=== PATIENT | female | born 1975 | race African-American/Black ===

== ENCOUNTER 2017-01-07 22:18 | Emergency (ER) | payer OTHER ==
--- NOTE | 2017-01-07 22:36 | PDOC ---
History of Present Illness - General Chief Complaint: Revisit, Lab Variance Stated Complaint: RH NEGATIVE Time Seen by Provider: 01/07/17 22:28 History Source: Patient Exam Limitations: No Limitations - History of Present Illness Initial Comments: 01/07/17 23:14 41-year-old female presents to the emergency department complaining of possible Rh-. Patient states this is her fourth . She was informed by her edger hand come to the hospital for Rhogam. Patient denies any chest pain, shortness of breath, abdominal pains, vaginal discharge. Patient states she has no complaints. Patient just wants to confirm her Rh status and if negative, she will need her Rhogam. 01/08/17 02:21 Patient was sent to the emergency department from labor and delivery. Patient will be sent back to labor and delivery to administer program since the type and screen shows B- Timing/Duration: unsure Past History - Travel Traveled outside of the country in the last 30 days: No Close contact w/someone who was outside of country & ill: No - Past Medical History Allergies/Adverse Reactions: Allergies Allergy/AdvReac Type Severity Reaction Status Date / Time No Known Allergies Allergy Verified 01/07/17 22:27 Home Medications: Ambulatory Orders NK [No Known Home Medication] 01/07/17 - Psycho/Social/Smoking Cessation Hx Suicidal Ideation: No Smoking History: Never smoked Have you smoked in the past 12 months: No Information on smoking cessation initiated: No Hx Alcohol Use: No Drug/Substance Use Hx: No Review of Systems - Review of Systems Able to Perform ROS?: Yes Comments:: 01/07/17 23:14 CONSTITUTIONAL: Absent: fever, chills, diaphoresis, generalized weakness, malaise, loss of appetite HEENT: Absent: rhinorrhea, nasal congestion, throat pain, throat swelling, difficulty swallowing, mouth swelling, ear pain, eye pain, visual Changes CARDIOVASCULAR: Absent: chest pain, loss of consciousness, palpitations, irregular heart rate, peripheral edema RESPIRATORY: Absent: cough, shortness of breath, dyspnea with exertion, orthopnea, wheezing, stridor, hemoptysis GASTROINTESTINAL: Absent: abdominal pain, abdominal distension, nausea, vomiting, diarrhea, constipation, melena, hematochezia GENITOURINARY: Absent: dysuria, frequency, urgency, hesitancy, hematuria, flank pain, genital pain MUSCULOSKELETAL: Absent: myalgia, arthralgia, joint swelling SKIN: Absent: rash, itching, pallor HEMATOLOGIC/IMMUNOLOGIC: Absent: easy bleeding, easy bruising, lymphadenopathy, frequent infections ENDOCRINE: Absent: unexplained weight gain, unexplained weight loss, heat intolerance, cold intolerance NEUROLOGIC: Absent: headache, focal weakness or paresthesias, dizziness, unsteady gait, seizure, mental status changes, bladder or bowel incontinence PSYCHIATRIC: Absent: anxiety, depression, suicidal or homicidal ideation, hallucinations. Is the patient limited Turkmen proficient: No *Physical Exam - Vital Signs Last Vital Signs Temp Pulse Resp BP Pulse Ox 98.6 F 89 18 118/62 99 01/07/17 22:27 01/07/17 22:27 01/07/17 22:27 01/07/17 22:27 01/07/17 22:27 - Physical Exam Comments: 01/07/17 23:14 GENERAL: Well developed, well nourished. Awake and alert. No acute distress. HEENT: Normocephalic, atraumatic. PERRLA, EOMI. No conjunctival pallor. Sclera are non- icteric. Moist mucous membranes. Oropharynx is clear. NECK: Supple. Full ROM. No JVD. Carotid pulses 2+ and symmetric, without bruits. No thyromegaly. No lymphadenopathy. CARDIOVASCULAR: Regular rate and rhythm. No murmurs, rubs, or gallops. Distal pulses are 2+ and symmetric. PULMONARY: No evidence of respiratory distress. Lungs clear to auscultation bilaterally. No wheezing, rales or rhonchi. ABDOMINAL: Soft. Non-tender. Non-distended. No rebound or guarding. No organomegaly. Normoactive bowel sounds. MUSCULOSKELETAL Normal range of motion at all joints. No bony deformities or tenderness. No CVA tenderness. EXTREMITIES: No cyanosis. No clubbing. No edema. No calf tenderness. SKIN: Warm and dry. Normal capillary refill. No rashes. No jaundice. NEUROLOGICAL: Alert, awake, appropriate. Cranial nerves 2-12 intact. No deficits to light touch and temperature in face, upper extremities and lower extremities. No motor deficits in the in face, upper extremities and lower extremities. Normoreflexic in the upper and lower extremities. Normal speech. Toes are down- going bilaterally. Gait is normal without ataxia. PSYCHIATRIC: Cooperative. Good eye contact. Appropriate mood and affect. *DC/Admit/Observation/Transfer Diagnosis at time of Disposition: Rh negative state in antepartum period Qualifiers: Trimester: second trimester Qualified Code(s): O09.892 - Supervision of other high risk pregnancies, second trimester - Discharge Dispostion Disposition: HOME Condition at time of disposition: Stable Admit: No - Referrals Referrals: Huber Vargas [Primary Care Provider] - Daniele Black MD [Staff Physician] - - Patient Instructions Additional Instructions: Follow-up with your manager scientific Return back to the emergency department for any concerns Progress Note - Progress Note Progress Note: 2320hrs: Spoke to Beverly RN/ L&D RN Pt will need 2 tubes of Type and Screen to confirm RH. If neg, send pt to L&D with Rhogam.
[2017-01-07 22:40] VITALS: BP 118/62; PULSE 89; TEMP 98.6; BMI 33.3
[2017-01-08] MEDS ORDERED: RHO(D) IMMUNE GLOBULIN 1,500 UNIT DISP.SYRIN IM ONE (01:54)
== END 2017-01-08 02:31 | disposition home or self-care (01) ==
LOC: JER 22:18
PROC: 3E023GC Introduction of Other Therapeutic Substance into Muscle, Percutaneous Approach (ICD-10-PCS; principal; 2017-01-07)
DX: O09.892 Supervision of other high risk pregnancies, second trimester (principal)
CPT/HCPCS: 86850; 86900; 86901; 86999; 99281-25; J1561

== ENCOUNTER 2017-02-14 14:00 | Inpatient (IN) | payer OTHER ==
[2017-03-16] MEDS ORDERED: CITRIC ACID/SODIUM CITRATE 30 ML UNIT-DOSE CUP PO ONE (07:39)
[2017-03-16] MEDS ORDERED: HEPARIN NA (PORCINE) 5,000 UNITS/ML 1ML VIAL SQ ONE (07:39)
--- NOTE | 2017-03-16 07:41 | HP ---
Past Medical History - Primary Care Physician PCP:: Mary Kay Henriquez - Admission Chief Complaint: Cardiac palpitations. Grade 3 Placenta History of Present Illness: 42 yo G P EDC 03/28/17 EGA 38 weeks admitted with cardiac problems affectting and Grade 3 placenta for repeat CS. MFM agrees with plan for delivery at 38 weeks History Source: Patient - Past Medical History ...Para: 3 - Past Surgical History Past Surgical History: Yes: Hx Myomectomy: No Hx Transabdominal Cerclage: No - Smoking History Smoking history: Never smoked Have you smoked in the past 12 months: No - Alcohol/Substance Use Hx Alcohol Use: No History of Substance Use: reports: None - Social History Usual Living Arrangement: Yes: With Spouse History of Recent Travel: No Home Medications - Allergies Allergies/Adverse Reactions: Allergies Allergy/AdvReac Type Severity Reaction Status Date / Time No Known Drug Allergies Allergy Verified 03/16/17 06:45 shellfish derived Allergy Hives Verified 03/16/17 06:45 - Home Medications Home Medications: Ambulatory Orders Vit/Iron Fumarate/FA [ Tablet] 1 tab PO DAILY 01/16/17 Review of Systems - Review of Systems Constitutional: reports: No Symptoms Eyes: reports: No Symptoms HENT: reports: No Symptoms Neck: reports: No Symptoms Cardiovascular: reports: Palpitations Respiratory: reports: No Symptoms Gastrointestinal: reports: No Symptoms Genitourinary: reports: No Symptoms Breasts: reports: No Symptoms Reported Musculoskeletal: reports: No Symptoms Integumentary: reports: No Symptoms Neurological: reports: No Symptoms Endocrine: reports: No Symptoms Hematology/Lymphatic: reports: No Symptoms Psychiatric: reports: No Symptoms Physical Exam - Maternity Constitutional: Yes: Well Nourished, No Distress Neck: Yes: WNL Cardiovascular: Yes: WNL, Regular Rate and Rhythm Lungs: Clear to auscultation Breast(s): Yes: WNL - Abdominal Exam/OB Fundal Height: 39 Number of Fetuses: Single Presentation: Vertex Contractions: No Monitor Mode: External Category: I Accelerations: Non-Uniform Decelerations: None - Vaginal Exam/OB Speculum Exam: No Dilatation (cm): closed Amniotic Membrane Status: Intact Presentation: Vertex/Position Station: -1 - Physical Exam Edema: No Integumentary: Yes: WNL Hemorrhage Risk Assessment - Risk Factors Medium Risk Factors: Yes: Prior , uterine surgery,or multiple laparotomies Risk Score: 1 Risk Level: Medium Risk Problem List - Problems (1) Cardiac condition affecting in third trimester, antepartum Code(s): O99.413 - DISEASES OF THE CIRC SYS COMP , THIRD TRIMESTER I51.9 - HEART DISEASE, UNSPECIFIED (2) Previous delivery affecting , antepartum Code(s): O34.219 - MATERNAL CARE FOR UNSP TYPE SCAR FROM PREVIOUS DEL Assessment/Plan Cardiac problems affecting Grade 3 placenta IUP at 38.4 weeks Plan REpeat CS Bilateral salpingectomy
[2017-03-16] MEDS ORDERED: ELECTROLYTE-148 SOLN 1,000 ML IV SCH (07:45)
[2017-03-16] MEDS ORDERED: BENZOCAINE 20% 57 GM BOTTLE TP PRN (07:46)
[2017-03-16] MEDS ORDERED: METHYLERGONOVINE MALEATE 0.2 MG/1 ML AMP IM PRN (07:46)
[2017-03-16] MEDS ORDERED: BENZOCAINE 28 GM HEMORRHOIDAL OINTMENT TP PRN (07:46)
[2017-03-16] MEDS ORDERED: TUBERCULIN PPD 5 TU/0.1ML SYRINGE (IN PATIENT USE ONLY) ID ONE (08:00)
[2017-03-16 08:05] VITALS: BMI 35.9
--- NOTE | 2017-03-16 08:21 | OP ---
Operative Note - Note: Operative Date: 03/16/17 Pre-Operative Diagnosis: Cardiac problems affecting . Grade 3 placenta. IUP at 38 weeks. Previous section Operation: repeat section. bilateral salpingectomy. Lysis of numerous dense adhesions Findings: Live male Nuchal x 2 Numerous scar tissue uterus was attached to anterior abdominal wall numerous adhesions seen in adnexal area Post-Operative Diagnosis: Same as Pre-op Surgeon: Mary Kay Henriquez Case Management Specialist: Delia Blackwell Anesthesia: Spinal Estimated Blood Loss (mls): 1,200 Operative Report Dictated: Yes
[2017-03-16] MEDS ORDERED: morphine SULFATE/Preservative Free 0.5 MG/ML (1cc Syringe) SPIN ONE (08:30)
[2017-03-16 09:04] LABS: ARTERIAL BLOOD GAS BASE EXCESS 0.7 meq/l (-2-2); ARTERIAL BLOOD GAS HCO3 27.3 meq/L (22-26); ARTERIAL BLOOD GAS PO2 24.1 mmHg (80-100); ARTERIAL BLOOD GAS pH 7.32 (7.35-7.45)
[2017-03-16 09:27] LABS: PT. ON O2? no
[2017-03-16 09:29] LABS: VENOUS PH 7.32 (7.32-7.42)
[2017-03-16] MEDS ORDERED: ONDANSETRON 4 MG/2 ML VIAL IVPB PRN (10:37)
[2017-03-16] MEDS: D5W-LR W/ 20 UNITS OXYTOCIN 1,000 ML IV SCH ×2 (10:51→21:08)
[2017-03-16] MEDS: IBUPROFEN 800 MG/8 ML IJ IVPB PRN (15:12)
--- NOTE | 2017-03-16 16:29 | PN ---
Progress Note (short form) - Note Progress Note: Called to see pt due to 400 cc of blood passed no bleeding presently advised will transfuse 3 units of blood prbc maintain methergine and pitocin fundus firm advised was difficult surgery and will have some blood loss stat cbc vss afebrile order tylenol Problem List - Problems (1) Cardiac condition affecting in third trimester, antepartum Code(s): O99.413 - DISEASES OF THE CIRC SYS COMP , THIRD TRIMESTER I51.9 - HEART DISEASE, UNSPECIFIED (2) Previous delivery affecting , antepartum Code(s): O34.219 - MATERNAL CARE FOR UNSP TYPE SCAR FROM PREVIOUS DEL
--- NOTE | 2017-03-16 20:14 | OP ---
DATE OF OPERATION: 03/16/2017 PREOPERATIVE DIAGNOSIS: Cardiac problems, antepartum intrauterine at 38 weeks and previous section x3. OPERATION: Repeat section and bilateral salpingectomy and lysis of numerous adhesions. FINDINGS: Uterus attached to the anterior abdominal wall, numerous scar tissue in uterus and adnexal region. Muscle also attached to the anterior abdominal wall. DESCRIPTION OF PROCEDURE: Patient was taken to the operating room, placed in supine position. Prepped and draped in usual sterile fashion. Timeout was performed in accordance with hospital regulation. Pfannenstiel skin incision was made with a scalpel. Cautery was then used to go through layers of abdominal wall towards the fascia. Fascia was cut in the midline, and cautery was then used to open the fascia in smiling fashion. Lilo was then used to bluntly and sharply dissect the rectus muscle off the fascia. The muscle split in the midline. Peritoneal cavity was then entered and carried upward and downward. The uterus was severely attached to the anterior abdominal wall. Adhesions had to be lysed prior to putting in the bladder blade. Scalpel was then used to make a low uterine segment. Incision was carried upward using bandage scissors. A live male infant was delivered in OP position. Nuchal cord x2 was reduced. The shoulders were delivered without difficulty. The cord was clamped and cut. Cord blood obtained. The placenta was manually extracted from the uterus. The uterus was unable to be exteriorized in the beginning due to numerous adhesions. Lysis of dense adhesions of the uterus to the anterior abdominal wall were done. Ovaries were noted to be normal. After much lysis of adhesions, Ligasure was then used to cut the rectus muscle away from the uterus and peritoneum away from the uterus. Uterus was then able to be exteriorized, and uterine incision was then closed using 0 Biosyn suture, first layer continuous interlocking, second layer imbricating the first layer. Mostly anterior abdominal wall was oozing, Ligasure was then used to burn and coagulate the uterus. Tubes were identified, and Ligasure was then used to clamp and coil the fallopian tube away from the uterus and submitted to pathology. Bilateral salpingectomies were performed using Ligasure. Hemostasis was achieved using [id number] sutures and coagulation using Ligasure device. Uterus was then interiorized, again ovaries were noted to be normal. Peritoneum was then closed in transverse fashion due to lysis of adhesions. Intercede was placed over the uterine scar. Muscle was approximated with circumferential stitch after peritoneum was then closed. Fascia was closed in 2 parts, continuous, skin was then closed using 3-0 Vicryl in subcuticular fashion. Wound was washed and dressed. Patient tolerated the procedure well. Was taken to recovery in stable condition. KALA CALDERÓN M.D. WERNER/[id number]
[2017-03-16 21:44] LABS: BASOPHIL 0.1 % (0-2.0); EOSINOPHIL 0.1 % (0-4.5); MCH 31.3 pg (25.7-33.7); MCHC 32.8 g/dl (32.0-36.0); MEAN CELL VOLUME 95.6 fl (80-96); MEAN PLT VOLUME 8.2 fl (7.5-11.1); NEUTROPHILS 83.6 % (42.8-82.8); PLATELET COUNT 172 K/MM3 (134-434); RDW 14.3 % (11.6-15.6); WHITE BLOOD COUNT 12.1 K/mm3 (4.0-10.0)
[2017-03-17] MEDS: SIMETHICONE 80 MG TAB.CHEW (FP) PO PRN ×5 (00:41→21:09)
[2017-03-17] MEDS: IBUPROFEN 800 MG/8 ML IJ IVPB PRN (02:22)
[2017-03-17] MEDS: oxyCODONE HCL 5 MG TABLET PO PRN ×4 (07:05→21:10)
[2017-03-17] MEDS: IBUPROFEN 600 MG TABLET (FP) PO PRN ×3 (07:05→15:33)
[2017-03-17 08:09] LABS: BASOPHIL 0.2 % (0-2.0); EOSINOPHIL 0.5 % (0-4.5); MCH 31.9 pg (25.7-33.7); MCHC 33.1 g/dl (32.0-36.0); MEAN CELL VOLUME 96.2 fl (80-96); MEAN PLT VOLUME 8.5 fl (7.5-11.1); NEUTROPHILS 73.5 % (42.8-82.8); PLATELET COUNT 159 K/MM3 (134-434); RDW 14.6 % (11.6-15.6); WHITE BLOOD COUNT 11.1 K/mm3 (4.0-10.0)
[2017-03-17] MEDS: ENOXAPARIN NA (PORCINE) 40 MG/0.4 ML DISP.SYRIN SQ SCH (09:21)
--- NOTE | 2017-03-17 09:29 | PN ---
Progress Note (short form) - Note Progress Note: Anesthesia Post op/ pain Pt seen and examined S:Alert and awake Comfortable ): Vital Signs Temperature 98.9 F 03/17/17 08:32 Pulse Rate 84 03/17/17 08:32 Respiratory Rate 20 03/17/17 08:32 Blood Pressure 98/60 03/17/17 08:32 O2 Sat by Pulse Oximetry (%) CBC, BMP 03/17/17 06:00 A/P:Current Active Problems Cardiac condition affecting in third trimester, antepartum (Acute) Previous delivery affecting , antepartum (Acute) s/p c section Doing well post op Continue current care Quentin Son MD
--- NOTE | 2017-03-17 09:36 | PN ---
Post Progress Note - Subjective Subjective: 42 yo Para 4, status post , seen and evaluated. She's out of bed to chair. Post Day: 1 Type of Delivery: Repeat C/S Vital Signs: Vital Signs Temperature 98.9 F 03/17/17 08:32 Pulse Rate 84 03/17/17 08:32 Respiratory Rate 20 03/17/17 08:32 Blood Pressure 98/60 03/17/17 08:32 O2 Sat by Pulse Oximetry (%) Breast Exam: Yes: Soft Uterus: Yes: Fundus Firm Incision: Yes: Dressing dry and intact Abdomen/GI: Yes: Abdomen soft Lochia: Yes: Rubra Lochia, amount: Small Extremities: Yes: Calves non-tender Perineum: Yes: Intact - Labs Labs: CBC WBC 11.1 K/mm3 (4.0-10.0) H 03/17/17 06:00 RBC 3.09 M/mm3 (3.60-5.2) L 03/17/17 06:00 Hgb 9.8 GM/dL (10.7-15.3) L 03/17/17 06:00 Hct 29.7 % (32.4-45.2) L 03/17/17 06:00 MCV 96.2 fl (80-96) H 03/17/17 06:00 MCHC 33.1 g/dl (32.0-36.0) 03/17/17 06:00 RDW 14.6 % (11.6-15.6) 03/17/17 06:00 Plt Count 159 K/MM3 (134-434) 03/17/17 06:00 MPV 8.5 fl (7.5-11.1) 03/17/17 06:00 Neutrophils % 73.5 % (42.8-82.8) 03/17/17 06:00 Lymphocytes % 17.2 % (8-40) D 03/17/17 06:00 Monocytes % 8.6 % (3.8-10.2) 03/17/17 06:00 Eosinophils % 0.5 % (0-4.5) D 03/17/17 06:00 Basophils % 0.2 % (0-2.0) 03/17/17 06:00 Problem List - Problems (1) Status post repeat low transverse section Code(s): Z98.891 - HISTORY OF UTERINE SCAR FROM PREVIOUS SURGERY Assessment/Plan Status post repeat Stable Ambulation Analgesia as needed Continue routine Post op care
[2017-03-17] MEDS ORDERED: ENOXAPARIN NA (PORCINE) 40 MG/0.4 ML DISP.SYRIN SQ SCH (10:00)
[2017-03-17] MEDS: BISACODYL 10 MG SUPP.RECT RC PRN ×2 (10:44→21:17)
[2017-03-17] MEDS: ACETAMINOPHEN 325 MG TABLET (FP) PO PRN ×3 (10:48→21:09)
[2017-03-17] MEDS: PRENATAL VITAMINS W/ FOLIC ACID TABLET (FP) PO SCH (10:53)
[2017-03-17] MEDS: D5W-LR W/ 20 UNITS OXYTOCIN 1,000 ML IV SCH (12:25)
[2017-03-17 18:06] LABS: MCHC 33.5 g/dl (32.0-36.0); MEAN CELL VOLUME 95.8 fl (80-96); MEAN PLT VOLUME 8.6 fl (7.5-11.1); PLATELET COUNT 173 K/MM3 (134-434); RDW 14.4 % (11.6-15.6); WHITE BLOOD COUNT 9.5 K/mm3 (4.0-10.0)
[2017-03-18] MEDS: ACETAMINOPHEN 325 MG TABLET (FP) PO PRN ×4 (01:23→20:05)
[2017-03-18] MEDS: IBUPROFEN 600 MG TABLET (FP) PO PRN ×4 (01:24→20:05)
[2017-03-18] MEDS: SIMETHICONE 80 MG TAB.CHEW (FP) PO PRN ×3 (08:04→20:04)
[2017-03-18] MEDS: oxyCODONE HCL 5 MG TABLET PO PRN ×3 (08:05→20:04)
[2017-03-18 09:06] VITALS: PULSE 86
[2017-03-18] MEDS: ENOXAPARIN NA (PORCINE) 40 MG/0.4 ML DISP.SYRIN SQ SCH (09:55)
[2017-03-18] MEDS: PRENATAL VITAMINS W/ FOLIC ACID TABLET (FP) PO SCH (09:55)
--- NOTE | 2017-03-18 13:17 | PN ---
Post Progress Note - Subjective Subjective: Pt seen and evaluated, doing well. Pain controlled, tolerating diet. Ambulating, voiding, passing flatus. Tolerating diet. Denies CP/SOB/F/C/HARRIS. VB minimal. Type of Delivery: Repeat C/S Vital Signs: Vital Signs Temperature 97.8 F 03/18/17 09:04 Pulse Rate 86 03/18/17 09:04 Respiratory Rate 20 03/18/17 09:04 Blood Pressure 118/63 03/18/17 09:04 O2 Sat by Pulse Oximetry (%) Uterus: Yes: Fundus Firm, Fundus below umbilicus Incision: Yes: Dressing dry and intact Abdomen/GI: Yes: Abdomen soft, Passing flatus, Tolerating PO. No: Abdominal Distention, Tender Lochia: Yes: Rubra Lochia, amount: Small Extremities: No: Edema Perineum: Yes: Intact Activity: Ambulating - Labs Labs: CBC WBC 9.5 K/mm3 (4.0-10.0) 03/17/17 17:00 RBC 2.75 M/mm3 (3.60-5.2) L 03/17/17 17:00 Hgb 8.8 GM/dL (10.7-15.3) L D 03/17/17 17:00 Hct 26.4 % (32.4-45.2) L 03/17/17 17:00 MCV 95.8 fl (80-96) 03/17/17 17:00 MCHC 33.5 g/dl (32.0-36.0) 03/17/17 17:00 RDW 14.4 % (11.6-15.6) 03/17/17 17:00 Plt Count 173 K/MM3 (134-434) 03/17/17 17:00 MPV 8.6 fl (7.5-11.1) 03/17/17 17:00 Neutrophils % 73.5 % (42.8-82.8) 03/17/17 06:00 Lymphocytes % 17.2 % (8-40) D 03/17/17 06:00 Monocytes % 8.6 % (3.8-10.2) 03/17/17 06:00 Eosinophils % 0.5 % (0-4.5) D 03/17/17 06:00 Basophils % 0.2 % (0-2.0) 03/17/17 06:00 Problem List - Problems (1) Status post repeat low transverse section Code(s): Z98.891 - HISTORY OF UTERINE SCAR FROM PREVIOUS SURGERY (2) Cardiac condition affecting in third trimester, antepartum Code(s): O99.413 - DISEASES OF THE CIRC SYS COMP , THIRD TRIMESTER I51.9 - HEART DISEASE, UNSPECIFIED (3) Anemia Code(s): D64.9 - ANEMIA, UNSPECIFIED Assessment/Plan 42 y/o POD#2 s/p repeat c section - AFVSS - anemia, s/p 1 unit PRBC, Hgb stable, VSS. To monitor, continue vitamins. - Encourage ambulation, regular diet PO pain meds - routine care, for discharge home in a.m. if stable
[2017-03-19] MEDS: ACETAMINOPHEN 325 MG TABLET (FP) PO PRN ×2 (07:26→11:48)
[2017-03-19] MEDS: SIMETHICONE 80 MG TAB.CHEW (FP) PO PRN ×2 (07:27→11:48)
[2017-03-19] MEDS: oxyCODONE HCL 5 MG TABLET PO PRN ×2 (07:27→11:49)
--- NOTE | 2017-03-19 07:55 | DS ---
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 Vital Signs: Vital Signs Temperature 97.8 F 03/18/17 20:08 Pulse Rate 86 03/18/17 20:08 Respiratory Rate 20 03/18/17 20:08 Blood Pressure 120/71 03/18/17 20:08 O2 Sat by Pulse Oximetry (%) Constitutional: Yes: Well Nourished Eyes: Yes: Conjunctiva Clear HENT: Yes: Atraumatic Neck: Yes: Supple, Trachea Midline Cardiovascular: Yes: Regular Rate and Rhythm Respiratory: Yes: Regular, CTA Bilaterally Gastrointestinal: Yes: Normal Bowel Sounds ...Rectal Exam: Yes: WNL External Genitalia: Yes: Normal Vaginal Exam: Yes: Normal Cervix: Yes: Normal Uterus: Yes: Firm Wound/Incision: Yes: Clean/Dry, Well Approximated, Steri Strips (in place) Neurological: Yes: Alert, Oriented ...Motor Strength: WNL Psychiatric: Yes: Alert, Oriented Labs: CBC, BMP 03/17/17 17:00 Delivery - Delivery Type of Anesthesia: Spinal Episiotomy/Laceration: None EBL (cc): 1,000 Delivery, Single - Stages of Labor Date of Delivery: 03/16/17 Time of Delivery: 08:48 Time Placenta Delivered: 08:50 - Condition of Infant Planning Specialist/First Line Production Supervisor Present: Yes Name: Dafne Matias Infant Gender: Male Weight: 8 lb 13 oz Position: Right, OT Total Hours ROM (Hrs/Mins): 1min - 1 Minute Total Score: 9 5 Minutes Total Score: 9 - Feeding Plan Initial Plan: Elected not to breastfeed exclusively throughout hospitalization Discharge Summary Reason For Visit: SCHEDULED C/SECTION Current Active Problems Anemia (Acute) Cardiac condition affecting in third trimester, antepartum (Acute) Previous delivery affecting , antepartum (Acute) Status post repeat low transverse section (Acute) Procedures: Principal: Repeat Hospital Course: Routine Post op care Condition: Good - Instructions Diet, Activity, Other Instructions: Physical activity Resume your normal everyday activity as tolerated no heavy lifting or exercise until seen by your surgeon. You may walk unlimited [place] of and climb stairs. You may resume driving the car when you feel safe and comfortable behind the wheel. No sexual activity as instructed. Wound care If you have a bandage, leave it on, and keep dry for 48-72 hours. After that time discard the outer bandage. If they are tapes on the skin under the out of bandage leave them in place. They will peel off in the next 7 to 10 days. Do Not Peel them off. You may shower the day after surgery. If there are tapes present on the skin, you may shower over them. Diet There are no dietary restrictions. Eat healthy, high-fiber foods. Drink 6 to 8 glasses of liquid each day. This will assist in keeping your bowels are regular. Pain management You may take Tylenol or acetaminophen or Ibuprofen (for example, Motrin, Advil etc.) from my pain prescription medication is ordered should be taken as prescribed for moderate to severe pain. Call MD for any of the following: Severe pain not relieved by medication Fever of 101 or higher Excessive bleeding or drainage on dressing Inability to urinate Referrals: Mary Kay Henriquez MD [Staff Physician] - Disposition: HOME - Home Medications Comprehensive Discharge Medication List: Ambulatory Orders Vit/Iron Fumarate/FA [ Tablet] 1 tab PO DAILY 01/16/17 Oxycodone HCl/Acetaminophen [Percocet 5-325 mg Tablet -] 1 tab PO Q4H #20 tablet MDD 6 03/16/17
[2017-03-19 08:36] LABS: BASOPHIL 0.3 % (0-2.0); EOSINOPHIL 2.4 % (0-4.5); MCHC 33.1 g/dl (32.0-36.0); MEAN CELL VOLUME 96.6 fl (80-96); MEAN PLT VOLUME 8.4 fl (7.5-11.1); NEUTROPHILS 72.1 % (42.8-82.8); PLATELET COUNT 169 K/MM3 (134-434); RDW 14.6 % (11.6-15.6); WHITE BLOOD COUNT 6.3 K/mm3 (4.0-10.0)
[2017-03-19] MEDS: PRENATAL VITAMINS W/ FOLIC ACID TABLET (FP) PO SCH (09:00)
[2017-03-19] MEDS: ENOXAPARIN NA (PORCINE) 40 MG/0.4 ML DISP.SYRIN SQ SCH (09:00)
[2017-03-19 09:44] VITALS: BP 114/62; TEMP 99.3
--- NOTE | 2017-03-21 13:42 | PATH ---
Surgical Pathology Report Patient Name: ADRIAN PERDOMO [facility]. Rec. #: [id number] /Age/Gender: 1975 (Age: 42) / F Account: [id number] Location: [facility] OBS/STUCCO PLASTERER Taken: 03/16/2017 Received: 03/17/2017 Reported: 03/21/2017 Physicians: Mary Kay Henriquez M.D. Specimen(s) Received A: PLACENTA B: RIGHT FALLOPIAN TUBE C: LEFT FALLOPIAN TUBE D: ADHESION Clinical History , 38.2 gestational weeks, previous c/section x3 Repeat scheduled c/section and BTL Final Diagnosis A. PLACENTA, DELIVERY: FOCALLY DISRUPTED THIRD TRIMESTER PLACENTA WITH MILD INCREASE IN PREVILLOUS, PERIVILLOUS, AND PRECHORIONIC FIBRIN DEPOSITION, CALCIFICATIONS, THREE VESSEL UMBILICAL CORD, AND PLACENTAL MEMBRANES WITH FOCAL LAMELLAR NECROSIS AND ACUTE CHORIOAMNIONITIS. B. FALLOPIAN TUBE, RIGHT, LIGATION: FIMBRIATED PORTION OF FALLOPIAN TUBE WITH COMPLETE CROSS SECTION AND PARATUBAL CYST. C. FALLOPIAN TUBE, LEFT LIGATION: SKIN RIGHT PORTION OF FALLOPIAN TUBE WITH COMPLETE CROSS SECTION. D. ADHESION, EXCISION: PORTION OF BENIGN FALLOPIAN TUBE WITH FIBROVASCULAR ADHESIONS. Electronically Signed Buck Bass M.D. Gross Description A. The specimen is received fresh, labeled "placenta" and is a 563 gram, 28.0 x 14.5 x 1.3 cm placenta with attached membranes and umbilical cord. The attached membranes are trejo, thick, cloudy and insert marginally. The umbilical cord measures 15 cm. in length and averages 1.3 cm. in diameter. The cord inserts eccentrically, 4 cm. to the nearest margin. No true knots or strictures are identified. Cut surface of the umbilical cord reveals 3 vessels. The surface is nichole-blue with fibrin deposition and appropriate caliber vessels. The maternal surface is red-brown with focal defects. Sectioning reveals red-brown, spongy parenchyma. No focal lesions are identified. Metal Hanging Supervisor sections are submitted in three cassettes as follows: 1- membrane rolls and umbilical cord; 2-3- full thickness sections of placenta. B. received in formalin labeled "right fallopian tube" is a 2.0 cm in length fimbriated portion of fallopian tube. The outer surface is trejo-martinez with a 1.0 cm in greatest dimension attached paratubal cyst. The cyst contains clear serous fluid. Sectioning of the fallopian tube reveals an unremarkable lumen. Also received within the same container is a 1.7 x 0.7 x 0.7 cm trejo-martinez portion of soft tissue. Metal Hanging Supervisor sections are submitted in 2 cassettes as follows: 1-fimbria and paratubal cyst; 2-cross sections of fallopian tube and territory account representative section of separately received soft tissue. C. Received in formalin labeled "left tube" is a 5.5 cm in length fimbriated portion of fallopian tube. The outer surface is trejo nichole with fibrous adhesions. Sectioning reveals an unremarkable lumen. Metal Hanging Supervisor sections are submitted in 2 cassettes as follows: 1-fimbria; 2-cross sections of fallopian tube. D. Received in formalin labeled "adhesion" is a 3.0 cm in length portion of fallopian tube. The outer surface is trejo-martinez with focal adhesions. Sectioning reveals an unremarkable lumen. Metal Hanging Supervisor sections are submitted in one cassette. 03/18/201703/18/2017
== END 2017-03-19 12:50 | disposition home or self-care (01) | DRG 765 ==
LOC: JLDR 03-16 06:12 → J3W 03-16 11:50
PROVIDERS: ADMIT Obstetrics & Gynecology; ATTEND Obstetrics & Gynecology
PROC: 10D00Z1 Extraction of Products of Conception, Low, Open Approach (ICD-10-PCS; principal; 2017-03-16)
PROC: 0UL70ZZ Occlusion of Bilateral Fallopian Tubes, Open Approach (ICD-10-PCS; 2017-03-16)
PROC: 30233N1 Transfusion of Nonautologous Red Blood Cells into Peripheral Vein, Percutaneous Approach (ICD-10-PCS; 2017-03-16)
PROC: 3E0334Z Introduction of Serum, Toxoid and Vaccine into Peripheral Vein, Percutaneous Approach (ICD-10-PCS; 2017-03-16)
DX: O34.211 Maternal care for low transverse scar from previous cesarean delivery (principal); O99.42 Diseases of the circulatory system complicating childbirth; O41.1230 Chorioamnionitis, third trimester, not applicable or unspecified; N85.8 Other specified noninflammatory disorders of uterus; I49.8 Other specified cardiac arrhythmias; O99.02 Anemia complicating childbirth; Z3A.38 38 weeks gestation of pregnancy; O09.523 Supervision of elderly multigravida, third trimester; Z30.2 Encounter for sterilization; O26.893 Other specified pregnancy related conditions, third trimester; Z67.91 Unspecified blood type, Rh negative; Z37.0 Single live birth
CPT/HCPCS: 36415; 36430; 36600; 82803; 85025; 85027; 85461; 86850; 86900; 86901; 86922; 86999; 88302-TC; 88304-TC; 88307-TC; J1644; P9038; P9058

== ENCOUNTER 2020-06-28 12:07 | Emergency (ER) | payer OTHER ==
--- OUTSIDE RECORDS SUMMARY | 2020-06-28 12:13 | XMS ---
:1975 Author Organization [facility] Care Team Providers Name Role Phone Brandi Rodriguez MD Unavailable Unavailable Re-disclosure Warning The records that you are about to access may contain information from federally- assisted alcohol or drug abuse programs. If such information is present, then the following federally mandated warning applies: This information has been disclosed to you from records protected by federal confidentiality rules (42 CFR part 2). The federal rules prohibit you from making any further disclosure of this information unless further disclosure is expressly permitted by the written consent of the person to whom it pertains or as otherwise permitted by 42 CFR part 2. A general authorization for the release of medical or other information is NOT sufficient for this purpose. The Federal rules restrict any use of the information to criminally investigate or prosecute any alcohol or drug abuse patient.The records that you are about to access may contain highly sensitive health information, the redisclosure of which is protected by Article 27-F of the [facility] Public Health law. If you continue you may haveaccess to information: Regarding HIV / AIDS; Provided by facilities licensed or operated by the [facility] Office of Mental Health; or Provided by the [facility] Office for People With Developmental Disabilities. If such information is present, then the following [facility] mandated warning applies: This information has been disclosed to you from confidential records which are protected by state law. State law prohibits you from making any further disclosure of this information without the specific written consent of the person to whom it pertains, or as otherwise permitted by law. Any unauthorized further disclosure in violation of state law may result in a fine or detention sentence or both. A general authorization for the release of medical or other information is NOT sufficient authorization for further disclosure. Encounters Encounter Providers Location Date Indications Data Source(s ) P Attender: Brandi 07/11/2019 [facility]HESIONSCharlene MD 11:45:00 [facility]HESIONS, URGENCY INCONTINENCE Insurance Providers Payer name Policy type / Policy ID Covered Covered libertarian's Policy Plan Coverage type libertarian ID relationship to Gam[employer] Information gamble [id number] [id number] SP [id number] [facility] [id number] PT [id number]
--- NOTE | 2020-06-28 12:31 | TELE ---
HPI Do you have fever,cough or shortness of breath?: No - General Reason For Visit: COVID-19 testing Time Seen by Provider: 06/28/20 12:25 History Source: Patient (Requesting COVID-19 testing is currently asymptomatic. 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 wearing her PPE.) Exam Limitations: No Limitations - History of Present Illness 06/28/20 12:27 CONSTITUTIONAL: Absent: fever, chills, diaphoresis, generalized weakness, malaise, loss of appetite HEENT: Absent: rhinorrhea, nasal congestion, throat pain, throat swelling, difficulty swallowing, mouth swelling, ear pain, eye pain, visual changes CARDIOVASCULAR: Absent: chest pain, loss of consciousness, palpitations, irregular heart rate, peripheral edema RESPIRATORY: Absent: cough, shortness of breath, dyspnea with exertion, orthopnea, wheezing, stridor, hemoptysis GASTROINTESTINAL: Absent: abdominal pain, abdominal distension, nausea, vomiting, diarrhea SKIN: Absent: rash, itching, pallor NEUROLOGIC: Absent: headache, focal weakness or paresthesias, dizziness, unsteady gait, seizure, mental status changes, bladder or bowel incontinence PSYCHIATRIC: Absent: anxiety, depression, suicidal or homicidal ideation, hallucinations. GENERAL: Well developed, well nourished. Awake and alert. No acute distress. HEENT: Normocephalic, atraumatic. PERRLA, EOMI. NECK: Supple. Full ROM. PULMONARY: No evidence of respiratory distress. EXTREMITIES: No cyanosis. SKIN: Warm and dry. Normal capillary refill. No rashes. No jaundice. NEUROLOGICAL: Alert, awake, appropriate. PSYCHIATRIC: Cooperative. Good eye contact. Appropriate mood and affect. Past History - Medical History Allergies/Adverse Reactions: Allergies Allergy/AdvReac Type Severity Reaction Status Date / Time No Known Drug Allergies Allergy Verified 03/16/17 06:45 shellfish derived Allergy Hives Verified 03/16/17 06:45 Home Medications: Ambulatory Orders Vit/Iron Fum/Folic AC [ Tablet] 1 tab PO DAILY 01/16/17 Oxycodone HCl/Acetaminophen [Percocet 5-325 mg Tablet -] 1 tab PO Q4H #20 tablet MDD 6 03/16/17 Oxycodone HCl/Acetaminophen [Percocet 5-325 mg Tablet -] 1 tab PO Q4H #30 tablet MDD 6 03/19/17 Asthma: No Cancer: No Cardiac Disorders: Yes Diabetes: No HTN: No Seizures: No Thyroid Disease: No - Psycho-Social/Smoking History Smoking History: Never smoked Have you smoked in the past 12 months: No - Medical Decision Making 06/28/20 12:31 A/P: 45-year-old woman requesting COVID-19 testing Patient is currently asymptomatic and 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 COVID-19 COVID-19 antibody testing Counseled for COVID-19 potential exposure Discharge Portions of this note have been documented using voice recognition software. As a result, errors may occur in the road crew member process. Effort has been made to correct all grammatical and road crew member error, but some may have been missed which may produce sporadic inaccurate road crew member or nonsensical phrases. Discharge Diagnosis at time of Disposition: Counseled about COVID-19 virus infection - Referrals - Patient Instructions Additional Discharge Instructions: You were tested for COVID today. Please isolate yourself until your test results come back. Guidance has been provided in your discharge papers You should receive a call within 24 to 48 hours from our department with your results. Thank you for using our telehealth service today! - Discharge Disposition: HOME Condition at time of Disposition: Stable
== END 2020-06-28 12:32 | disposition home or self-care (01) ==
LOC: JVIRT 12:07
DX: Z11.59 Encounter for screening for other viral diseases (principal)
CPT/HCPCS: 36415; 86769; C9803; Q3014-GT; U0003

== ENCOUNTER 2020-10-08 10:56 | Emergency (ER) | payer OTHER | END 2020-10-08 12:27 | disposition home or self-care (01) | LOC: JVIRT 10:56 | DX: Z11.52 Encounter for screening for COVID-19 (principal) | CPT/HCPCS: C9803; G2012-GT; Q3014-GT; U0003 ==

== ENCOUNTER 2020-10-18 11:35 | Emergency (ER) | payer OTHER | END 2020-10-18 12:09 | disposition home or self-care (01) | LOC: JVIRT 11:35 | DX: Z20.822 Contact with and (suspected) exposure to COVID-19 (principal) | CPT/HCPCS: C9803; G2251-GT; Q3014-GT; U0003 ==

== ENCOUNTER 2021-03-25 15:52 | Emergency (ER) | payer OTHER ==
[2021-03-28 09:39] LABS: SARS-CoV-2 NAA NOT DETECTED
== END 2021-03-25 17:49 | disposition home or self-care (01) ==
LOC: JVIRT 15:52
DX: Z20.822 Contact with and (suspected) exposure to COVID-19 (principal)
CPT/HCPCS: C9803; Q3014-GT; U0003; U0005